=== PATIENT | female | born 1965 | race African-American/Black ===

== ENCOUNTER 2020-11-03 02:51 | Inpatient (IN) | payer BC ==
[~2020-11-03] VITALS: Ht 320 cm; Wt 93.0 kg
[2020-11-03 03:49] LABS: CLARITY URINE CLEAR (CLEAR); COLOR URINE YELLOW (YELLOW); KETONES URINE NEGATIVE (NEGATIVE); LEUKOCYTE ESTERASE URINE TRACE (NEGATIVE); NITRITE URINE NEGATIVE (NEGATIVE); OCCULT BLOOD URINE NEGATIVE (NEGATIVE); PROTEIN URINE NEGATIVE (NEGATIVE); SPECIFIC GRAVITY URINE 1.007 (1.005-1.030); UROBILINOGEN URINE 0.2 E.U./dL (0.2-1.0)
[2020-11-03 03:58] LABS: *AMPHETAMINES SCREEN URINE NEGATIVE (NEGATIVE); *BARBITURATES SCREEN URINE NEGATIVE (NEGATIVE); *COCAINE SCREEN URINE NEGATIVE (NEGATIVE)
[2020-11-03 03:59] LABS: BASOPHILS % 1.1 % (0.0-2.0); HEMATOCRIT. 42.6 % (36.0-48.0); HEMOGLOBIN. 14.2 g/dL (12.0-16.0); LYMPHOCYTES % 35.3 % (20.0-50.0); MEAN CORPUSCULAR HEMOGLOBIN 30.4 pg (28.0-32.0); MONOCYTES % 7.3 % (2.0-8.0); NEUTROPHILS % 50.3 % (40.0-76.0); PLATELET 167 x1000/uL (130-400); RED BLOOD CELL COUNT 4.68 mill/uL (4.2-5.4); RED CELL DISTRIBUTION WIDTH 14.3 % (11.6-14.6)
[2020-11-03 03:59] LABS: *BENZODIAZEPINES SCREEN URINE NEGATIVE (NEGATIVE); CANNABINOID URINE SCREEN NEGATIVE (NEGATIVE); METHADONE URINE SCREEN NEGATIVE (NEGATIVE); OPIATES URINE SCREEN NEGATIVE (NEGATIVE); PHENCYCLIDINE URINE SCREEN NEGATIVE (NEGATIVE)
[2020-11-03 04:01] LABS: CHLORIDE 108 mEq/L (98-107)
[2020-11-03 04:05] LABS: ETHANOL BLOOD < 10 mg/dL
[2020-11-03] MEDS ORDERED: NITROGLYCERIN OINT 1GM/INCH UDPKT TD ONE (04:15)
[2020-11-03] MEDS ORDERED: ACETAMINOPHEN 325MG TABLET PO ONE (04:15)
[2020-11-03] MEDS ORDERED: MAGNESIUM/ALUMINUM HYDROXIDE/SIMETHICONE 30ML UDC PO PRN (06:30)
[2020-11-03] MEDS ORDERED: ACETAMINOPHEN 325MG TABLET PO PRN (06:30)
[2020-11-03] MEDS ORDERED: GUAIFENESIN 200MG/10ML SUGAR FREE UDC PO PRN (06:30)
[2020-11-03] MEDS ORDERED: DOCUSATE SODIUM 100MG CAPSULE PO PRN (06:30)
[2020-11-03] MEDS ORDERED: MORPHINE SULFATE 2 MG/ML CPJ (NOT FOR IM USE) IV PRN (06:30)
[2020-11-03] MEDS ORDERED: CLONIDINE 0.1MG TABLET PO PRN (06:30)
[2020-11-03] MEDS ORDERED: ONDANSETRON HCL 4MG/2ML INJ IV PRN (06:30)
[2020-11-03] MEDS ORDERED: HYDROCODONE/ACETAMINOPHEN 5/325MG TABLET PO PRN (06:30)
[2020-11-03] MEDS: AMLODIPINE 10MG TABLET PO SCH (07:25)
[2020-11-03] MEDS ORDERED: CEFD300C3 PO (07:59)
[2020-11-03] MEDS ORDERED: AMLO5TAB4 PO (07:59)
[2020-11-03] MEDS ORDERED: ENOXAPARIN 40MG/0.4ML SYR SUBCUT SCH (09:00)
[2020-11-03 09:45] VITALS: BP 159/89
[2020-11-03] MEDS: ASPIRIN 81MG EC TABLET PO SCH (09:54)
[2020-11-03 10:00] VITALS: BP 159/89
[2020-11-03] MEDS ORDERED: CARB15DR2 EACHEYE (10:58)
[2020-11-03 12:00] VITALS: BP 143/83
[2020-11-03] MEDS: OMNICEF 300 MG PO SCH ×2 (13:29→20:58)
[2020-11-03] MEDS ORDERED: *PATIENT'S OWN MEDICATION STORAGE XX SCH (13:30)
[2020-11-03 16:00] VITALS: BP 140/89
[2020-11-03 20:00] VITALS: BP 147/89
[2020-11-03 20:38] LABS: CREATINE KINASE 138 IU/L (26-192)
[2020-11-04] VITALS: BP 143/88
[2020-11-04 01:44] LABS: CREATINE KINASE 123 IU/L (26-192)
[2020-11-04 04:00] VITALS: BP 134/89
[2020-11-04 06:51] LABS: BASOPHILS % 1.2 % (0.0-2.0); EOSINOPHILS % 5.9 % (0.0-5.0); HEMATOCRIT. 45.2 % (36.0-48.0); LYMPHOCYTES % 30.8 % (20.0-50.0); MEAN CORPUSCULAR HEMOGLOBIN 30.1 pg (28.0-32.0); MEAN CORPUSCULAR VOLUME 90.8 fL (81.0-99.0); MEAN PLATELET VOLUME 8.6 fl (7.4-10.4); MONOCYTES % 7.7 % (2.0-8.0); NEUTROPHILS % 54.4 % (40.0-76.0); PLATELET 181 x1000/uL (130-400); RED BLOOD CELL COUNT 4.98 mill/uL (4.2-5.4); RED CELL DISTRIBUTION WIDTH 14.4 % (11.6-14.6)
[2020-11-04 07:00] LABS: CHLORIDE 108 mEq/L (98-107)
[2020-11-04 07:07] LABS: LDL CHOLESTEROL 110 mg/dL (5-100)
[2020-11-04 07:08] LABS: HDL CHOLESTEROL 78 mg/dL (40-59)
[2020-11-04 08:00] VITALS: BP 142/91
[2020-11-04] MEDS ORDERED: REGADENOSON 0.4 MG/5 ML IV ONE ×2 (08:30→10:24)
[2020-11-04] MEDS ORDERED: ENOXAPARIN 30MG/0.3ML SYR SUBCUT SCH (09:00)
[2020-11-04] MEDS: LISINOPRIL 5MG TABLET PO SCH ×2 (09:00→12:13)
[2020-11-04 12:00] VITALS: BP 132/89
[2020-11-04] MEDS: OMNICEF 300 MG PO SCH (12:12)
[2020-11-04] MEDS: ASPIRIN 81MG EC TABLET PO SCH (12:13)
[2020-11-04] MEDS: AMLODIPINE 10MG TABLET PO SCH (12:14)
[2020-11-04] MEDS ORDERED: ATORVASTATIN CALCIUM 40MG TABLET PO SCH (21:00)
== END 2020-11-04 15:40 | disposition home or self-care (01) | DRG 206 ==
LOC: ER 03:12 → 8WST 05:24 → EDBEDREQTM 05:27 → EDBEDREQ 05:27 → ENRESERV 07:47 → CMPBEDREQ 08:42
PROVIDERS: ADMIT Hospitalist; ATTEND Hospitalist
DX: M94.0 Chondrocostal junction syndrome [Tietze] (principal); Z68.1 Body mass index [BMI] 19.9 or less, adult; E11.9 Type 2 diabetes mellitus without complications; E66.9 Obesity, unspecified; E78.5 Hyperlipidemia, unspecified; I10 Essential (primary) hypertension; Z20.822 Contact with and (suspected) exposure to COVID-19; I16.0 Hypertensive urgency; Z82.49 Family history of ischemic heart disease and other diseases of the circulatory system; Z90.721 Acquired absence of ovaries, unilateral; Z87.440 Personal history of urinary (tract) infections
CPT/HCPCS: 36415; 71045; 78452; 80053; 80061; 80305; 80320; 81003; 82550; 83036; 83880; 84484; 85025; 87426; 93005; 93017; 93306; 93970; 99285; A9500; J1650; J2785; G0480